=== PATIENT | male | born 1980 | race Caucasian/White ===

== ENCOUNTER 2019-05-25 13:44 | Emergency (ER) | payer MEDICAID, OTHER ==
[~2019-05-25] VITALS: Ht 185.4 cm; Wt 117.1 kg
[~2019-05-25 13:44] MED LIST: FAMO-128 PO; LIDOcaine 1% W/epiNEPHrine 1:100,000 20ml vial ONE
[2019-05-25] MEDS ORDERED: TETanus/Pertussis (Acell)/Diphther VAC/PF (Tdap-Adult) 0.5ml syringe IMVAC ONE (14:10)
[2019-05-25 14:50] VITALS: BP 134/77
== END 2019-05-25 14:52 | disposition home or self-care (01) ==
LOC: ER 13:45
DX: S01.01XA Laceration without foreign body of scalp, initial encounter (principal); Z79.899 Other long term (current) drug therapy; W22.8XXA Striking against or struck by other objects, initial encounter; Y93.89 Activity, other specified; Y92.89 Other specified places as the place of occurrence of the external cause; Y99.8 Other external cause status
CPT/HCPCS: 12001; 90471; 90715; 99283

== ENCOUNTER 2019-06-03 15:10 | Emergency (ER) | payer MEDICAID, OTHER ==
[~2019-06-03] VITALS: Ht 185.4 cm; Wt 114.2 kg
[~2019-06-03 15:10] MED LIST changes: -LIDOcaine 1% W/epiNEPHrine 1:100,000 20ml vial ONE
[2019-06-03 15:14] VITALS: BP 123/79
== END 2019-06-03 15:25 | disposition home or self-care (01) ==
LOC: ER 15:11
DX: S01.01XD Laceration without foreign body of scalp, subsequent encounter (principal); Z98.890 Other specified postprocedural states; Z79.899 Other long term (current) drug therapy; W22.8XXD Striking against or struck by other objects, subsequent encounter
CPT/HCPCS: 99281

== ENCOUNTER 2019-07-11 11:18 | Emergency (ER) | payer MEDICAID, OTHER ==
[~2019-07-11] VITALS: Ht 185.4 cm; Wt 90.0 kg
[2019-07-11] MEDS ORDERED: normal saline 1000ML IV soln IVB ONE (12:30)
[2019-07-11] MEDS ORDERED: iohexol 300mg/ml 100ml inj. ONE (12:56)
[2019-07-11 14:20] VITALS: BP 162/90
== END 2019-07-11 14:22 | disposition home or self-care (01) ==
LOC: ER 11:19
DX: S22.31XA Fracture of one rib, right side, initial encounter for closed fracture (principal); Z90.89 Acquired absence of other organs; Z79.899 Other long term (current) drug therapy; X58.XXXA Exposure to other specified factors, initial encounter; Y93.89 Activity, other specified; Y92.89 Other specified places as the place of occurrence of the external cause; Y99.8 Other external cause status
CPT/HCPCS: 71046; 71260; 74177; 99285; J7030; Q9967